=== PATIENT | male | born 1955 | race Caucasian/White ===

== ENCOUNTER 2021-12-15 21:16 | Inpatient (IN) | payer MEDICARE ==
[2021-12-15] MEDS ORDERED: SODIUM CHLORIDE 0.9% 1,000 ML IV ONE (21:39)
[2021-12-15] MEDS ORDERED: MIDAZOLAM 2 MG/2 ML VIAL IV ONE (21:40)
[2021-12-15] MEDS ORDERED: LIDOCAINE 1% INJ 10MG/ML (30 ML VIAL-PF) SQ ONE (21:41)
[2021-12-15] MEDS ORDERED: VERAPAMIL SYRINGE (5 MG/10 ML) INTRAARTER ONE ×2 (21:42→22:35)
[2021-12-15] MEDS ORDERED: FUROSEMIDE 10 MG/ML 4 ML VIAL ONE (21:47)
[2021-12-15] MEDS ORDERED: FUROSEMIDE 10 MG/ML 4 ML VIAL IV ONE (21:48)
[2021-12-15] MEDS: HEPARIN SODIUM 1,000 UN/ML (10ML VL) IV ONE ×2 (21:50→22:06)
--- NOTE | 2021-12-15 21:50 | P.CRDCN ---
History of Present Illness History of present illness: This is Dr. Dangelo dictating an H/P on this patient The patient was interviewed and examined IMPRESSION / ASSESSMENT: Acute ST elevation AL inferior posterior lateral and chest pain that began 1 hour before arriving to the Medical Center Recent GI Bleeding from a Bleeding Ulcer No Recent Acute Bleeding Post Discharge Marijuana Use PLAN: Urgent coronary angiography Patient received aspirin heparin and atorvastatin at [facility] HPI Patient started experiencing chest discomfort after an argument with his grandson became very emotionally upset He was describing throbbing discomfort in the center of the chest. He was pale and diaphoretic old and clammy No GI bleeding in the last 2-3 days He has a history of her bleeding ulcer diagnosed on endoscopy a week back His twelve-lead EKG showed ST elevation in inferior leads and ST depression in the precordial and high lateral leads I was called by the ER physician at [facility] stating that this patient had arrived within one hour chest discomfort and asked him to transfer him to put her on hospital urgently to the [facility] The Was Activated by Me and I Spoke with Dr. Russo. Was Covering for Dr. Jolley ROS: No fever chills or rigors, no cough, phlegm or expectoration, no nausea, vomiting or diarrhea, no hematuria, dysuria, no musculoskeletal complaints, no strokes or seizures, no skin lesions. EXAMINATION: Sinus tachycardia, blood pressure 06/16/1975. His mercury pulse is 108 beats a minute Patient was on the cath table REVIEW OF LABS, ECG & MEDICAL DATA EKG shows ST elevation in the inferior leads with ST depression in the precordial leads and in the high lateral leads
[2021-12-15] MEDS ORDERED: CLOPIDOGREL 75 MG TAB ONE (22:02)
[2021-12-15] MEDS ORDERED: CLOPIDOGREL 75 MG TAB PO ONE (22:04)
[2021-12-15] MEDS ORDERED: METOPROLOL TARTRATE 5 MG/5 ML VIAL IVP ONE (22:06)
[2021-12-15] MEDS: METOPROLOL TARTRATE 5 MG/5 ML VIAL IVP ONE ×2 (22:11→22:15)
[2021-12-15] MEDS ORDERED: IOPAMIDOL-370 100ML BTL INJ ONE ×2 (22:11→22:35)
[2021-12-15 23:15] LABS: Glucose,Whole Blood 225 mg/dL (70-110)
[2021-12-16] MEDS: LOSARTAN 25 MG TAB PO SCH ×2 (00:05→08:53)
[2021-12-16] MEDS: ATORVASTATIN 20 MG TAB PO SCH ×2 (00:05→20:29)
[2021-12-16] MEDS ORDERED: NALOXONE 0.4 MG/ML 1 ML VIAL IV PRN (00:34)
[2021-12-16 05:47] LABS: Partial Thromboplastin Time 22.8 sec (22.0-30.0); Prothrombin Time 10.6 sec (9.0-12.0)
[2021-12-16 05:48] LABS: Anisocytosis Slight; Basophils % (A) 0 %; Eosinophils % (A) 0 %; HCT 24.4 % (39.0-53.0); HGB 7.3 gm/dL (13.0-17.5); Hypochromasia Marked; Lymphocytes # (A) 1.5 k/uL (1.0-4.8); Lymphocytes % (A) 15 %; MCH 26.3 pg (25.0-35.0); MCHC 29.7 g/dL (31.0-37.0); MCV 88.4 fL (80.0-100.0); Mean Platelet Volume 10.6; Monocytes # (A) 0.4 k/uL (0-1.0); Monocytes % (A) 4 %; Neutrophils # (A) 7.9 k/uL (1.3-7.7); Neutrophils % (A) 77 %; Platelet Count 347 k/uL (150-450); Poikilocytosis Marked; RBC 2.77 m/uL (4.30-5.90); RDW 16.5 % (11.5-15.5); WBC 10.3 k/uL (3.8-10.6)
--- NOTE | 2021-12-16 05:54 | P.HPIM ---
History of Present Illness H&P Date: 12/16/21 Chief Complaint: chest pain 66-year-old with controlled hypertension, hyperlipidemia Patient was sent in to our hospital as a code STEMI after discussing with our corporate security officer production assistant he was taken straight to the phlebotomist medical lab assistant and stents were deployed in his RCA. Patient was seen at after his left heart cath he was doing well denies any ongoing chest pain, tolerated procedure well. Denies any nausea vomiting or trouble eating. He reports that he had some argument with his 17-year-old grandson he got very upset and started to feel throbbing chest pain he became pale diaphoretic and was taken for evaluation where he was found to have ST elevation in his inferior leads with ST depression in his lateral leads on his EKG. Patient denies any cardiac history in the past however he does report recent history of GI bleed in where he was having melena for couple weeks, he had an EGD done earlier this week and found to have peptic ulcer disease and tested positive for H. pylori he's been on amoxicillin and clarithromycin and PPI and high since denies any ongoing GI bleeding. Denies taking any NSAIDs denies any blood thinners denies any heavy alcohol consumption he denies tobacco smoking he does admit to marijuana patient doesn't have any history of diabetes stroke or cardiac disease Admits that he is generally under a lot of stress and worries about all little things and he's been going through some stressful time in his life Review of Systems Pertinent positives as noted in HPI. All other systems were reviewed and are negative Past Medical History Past Medical History: Hyperlipidemia, Hypertension History of Any Multi-Drug Resistant Organisms: None Reported Past Surgical History: Hernia Repair Additional Past Surgical History / Comment(s): Right ankle 2004, Right shoulder 2006, Hernia repair 1982 Past Anesthesia/Blood Transfusion Reactions: No Reported Reaction Past Psychological History: No Psychological Hx Reported Smoking Status: Former smoker Past Alcohol Use History: None Reported - Past Family History Family Family Medical History: Coronary Artery Disease (CAD), Hypertension Medications and Allergies Allergies Allergy/AdvReac Type Severity Reaction Status Date / Time codeine AdvReac Rapid Verified 12/15/21 22:42 Heart Rate Physical Exam Vitals: Vital Signs Temp Pulse Resp BP Pulse Ox 12/16/21 02:00 92 12 122/75 99 12/16/21 01:30 115 H 41 H 107/69 99 12/16/21 01:00 93 14 101/75 99 12/16/21 00:32 99 17 101/75 99 12/16/21 00:30 98 12 108/58 99 12/16/21 00:00 98.4 F 95 13 103/74 99 12/15/21 23:30 98 11 L 101/72 99 12/15/21 23:10 98 14 86 L Intake and Output 12/15/21 12/15/21 12/16/21 14:59 22:59 06:59 Intake Total 400 300 Output Total 700 1050 Balance -300 -750 Intake: IV 400 300 Sodium Chloride 0.9% 1, 300 000 ml @ 75 mls/hr IV . [id number] [facility] Rx#:[id number] Output: Urine 700 1050 Other: Voiding Method Urinal # Voids 1 Weight 70.4 kg 70.4 kg Constitutional: No acute distress, conversant, pleasant Eyes: Anicteric sclerae, moist conjunctiva, Pupils equal round reactive to light ENMT: NC/AT Oropharynx clear, no erythema, or exudates Neck: Supple, FROM, no masses, or JVD No carotid bruits No thyromegaly Lungs: Clear to auscultation Clear to percussion Normal respiratory effort, no accessory muscle use Cardiovascular: Heart regular in rate and rhythm, No murmurs, gallops, or rubs No peripheral edema Abdominal: Soft Nontender, no guarding, rebound or rigidity Abdomen moving with respiration Normoactive bowel sounds No hepatomegaly, No splenomegaly No palpable mass No abdominal wall hernia noted Skin: Normal temperature, tone, texture, turgor No induration No subcutaneous nodules No rash, lesions No ulcers Extremities: Left heart cath access through a right wrist looks intact no bleeding no excessive bruising No digital cyanosis No clubbing Pedal pulses intact and symmetrical Radial pulses intact over the left wrist, unable to assess the right wrist at this time due to surgical access No calf tenderness Psychiatric: Alert and oriented to person, place and time Appropriate affect fair judgement Neuro Muscles Strength 5/5 in all 4 extremities Sensation to light touch grossly present throughout Cranial nerves II-XII grossly intact No focal sensory deficits Lymphatics: no palpable cervical or supraclavicular , or inguinal lymph nodes Results Labs: Abnormal Lab Results - Last 24 Hours (Table) 12/15/21 Range/Units 23:13 POC Glucose (mg/dL) 225 H (70-110) mg/dL Thrombosis Risk Factor Assmnt - Choose All That Apply Any of the Below Risk Factors Present?: Yes Each Factor Represents 1 point: Acute [place] Other Risk Factors: Yes Each Risk Factor Represents 2 Points: Age 61-74 years, Patient confined to bed Other congenital or acquired thrombophilia - If yes, enter type in comment: No Thrombosis Risk Factor Assessment Total Risk Factor Score: 5 Thrombosis Risk Factor Assessment Level: High Risk Assessment and Plan Assessment: STEMI , status post stenting of RCA drug-eluting stents Cardiology initiated Plavix and aspirin Continue monitoring in the ICU Continue with statin and metoprolol and losartan Cardiac monitoring Follow-up other cardiology recommendations Recent upper GI bleeding secondary to peptic ulcer disease with H. pylori positive Continue with PPI hold antibiotics for now patient is on amoxicillin and Claritin from my sent, as clarithromycin decreases effectiveness of plan expect 30% will discuss further with cardiology on when it would be possible to resume antibiotics Monitor hemoglobin Monitor for any evidence of GI bleeding 66-year-old male admitted with a STEMI, status post RCA stenting currently being monitored in the ICU post left heart cath anticipated length of stay more than 2 midnights Full code DVT prophylaxis heparin subcu 3 times a day
[2021-12-16 05:56] LABS: ALT 204 U/L (4-49); AST 191 U/L (17-59); African American GFR (CKD) >90 (>60 ml/min/1.73 sqM); Albumin 3.5 g/dL (3.5-5.0); Alkaline Phosphatase 102 U/L (38-126); Anion Gap 8 mmol/L; Blood Urea Nitrogen 16 mg/dL (9-20); Calcium 8.5 mg/dL (8.4-10.2); Carbon Dioxide 27 mmol/L (22-30); Chloride 104 mmol/L (98-107); Glucose 113 mg/dL (74-99); Magnesium 2.1 mg/dL (1.6-2.3); Non-African American GFR(CKD) >90 (>60 ml/min/1.73 sqM); Potassium 4.8 mmol/L (3.5-5.1); Sodium 139 mmol/L (137-145); Total Bilirubin 0.4 mg/dL (0.2-1.3); Total Protein 6.1 g/dL (6.3-8.2)
[2021-12-16] MEDS: SODIUM CHLORIDE 0.9% 1,000 ML IV SCH ×3 (06:58→15:46)
[2021-12-16] MEDS: PANTOPRAZOLE 40 MG TABLET PO SCH (07:09)
--- NOTE | 2021-12-16 07:09 | CC ---
CARDIAC CATHETERIZATION REPORT DATE OF SERVICE: 12/15/2021. PROCEDURE: 1. Left heart catheterization, coronary angiography. 2. PTCA and stenting of proximal and mid RCA with a drug-eluting stent. ANESTHESIA: Moderate conscious sedation time was 56 minutes. Patient was administered Versed. Oxygen saturation,hemodynamics and EKG were monitored closely. The patient was advised dual antiplatelet therapy with aspirin and Plavix without interruption for 12 months. CLINICAL INFORMATION: Mr. Snow is a 66-year-old gentleman with a history of hypertension and also anemia of unclear etiology for which he is having a workup. Last Sunday, he had an endoscopy performed, results of which are not available, at [facility]. He came into the hospital with chest discomfort more than 1 hour prior to arrival to [facility], was transferred here to [facility] after initiation of aspirin and heparin. Patient was seen by Dr. Dangelo and I proceeded to perform cardiac cath expeditiously. PROCEDURE NOTE: Under local anesthesia and strict aseptic precautions, a 6-Korean introducer was placed in the right radial artery. I started off with a right Sinan guide catheter and performed PTCA and stenting of proximal and mid RCA with 2 drug-eluting stents and then performed coronary angiography with a JL3.5 catheter. The same right guide catheter was used to check pressures in the LV, but LV gram was not performed. The sheath was taken out and TR band applied as per protocol. The saturation the fingers of the right hand of 94%. Patient tolerated the procedure well without complication. He received heparin intravenously. A CT was 213. Because of a hemoglobin of 6.9, we kept the ACT low end of the range. I also gave 600 mg of Plavix. CARDIAC CATHETERIZATION FINDINGS: RIGHT CORONARY ARTERY: Large dominant vessel, superdominant 99% mid occlusion at the origin of acute marginal branches and then there is another lesion of about 70% beyond that and then distally bifurcates into PDA, PLV which are both large and supplies a sizable amount of myocardium. LEFT POSTERIOR CIRCUMFLEX CORONARY ARTERY: This vessel comes ectopically from the RCA. The RCA injection reveals that the circumflex goes superiorly and posteriorly and is not very well seen. It appears to be a diffusely disease vessel which is a nondominant coming from the right coronary artery. LEFT ANTERIOR DESCENDING CORONARY ARTERY: This is a good caliber vessel that has a proximal lesion of about 60% located very close to the ostium. Then the caliber improves and it gives off a septal and diagonal branch and then runs all the way towards the apex and gives off another second diagonal branch. There is mild diffuse disease of about 30-40 percent but proximally there is a 60% lesion, which I believe is significant, but not critical. This involves a single LAD that comes from the left coronary cuff. This patient has ectopic circumflex coming from the RCA, small and nondominant. Left ventricle end-diastolic pressure was 24 mmHg without any gradient across aortic valve. FINAL IMPRESSION: Left ventricular end-diastolic pressure was about 24 mmHg without any gradient across aortic valve. This patient has an ectopic circumflex coming from the right coronary cusp. There is no left main coronary artery. RCA has a 99% mid lesion and a 70% distal/mid lesion super dominant vessel. Circumflex comes off very proximally, but appears to be diffusely disease nondominant vessel without significant amount of myocardium being supplied by it. LAD is a good caliber vessel, has a 60% stenosis proximally and then mild diffuse disease of 20-40 percent and runs towards the apex, gives off 2 good-sized diagonal branch and a good-sized septal branch. LV-gram was not performed. RECOMMENDATIONS: I advised PCI of RCA and performed this expeditiously. PCI PROCEDURE DETAILS: Standard right Sinan guide catheter was used to cannulate the right coronary artery. A run-through wire was used to cross the lesion. The mid lesion was initially dilated with a trek balloon of 2.5 caliber. Then a 3.0 caliber NC trek was used to pre dilated. I deployed an 18 mm long 3.5 caliber Xience stent and noted that distally there was another 70% lesion. This was addressed with a 15 mm long 3.5 caliber Xience stent. Excellent angiographic result was achieved without complication. Patient received 600 mg of Plavix and also heparin ACT was kept at 213. Patient's hemoglobin was 6.9, platelet count was normal. He had a recent workup and had endoscopy performed and was known to have a GI bleed. Therefore, ACT was kept in the low end of the range. Results were discussed with the patient and family and he was sent to the room in a stable condition. Advised 12 months of aspirin and Plavix without interruption unless we find a reason in view of his anemia. MMODL / IJN: [id number] /
[2021-12-16] MEDS: HEPARIN SODIUM,PORCINE/PF 5,000 UNIT/0.5 ML SYRINGE SQ SCH ×3 (08:52→23:05)
[2021-12-16] MEDS: METOPROLOL TARTRATE 25 MG TAB PO SCH ×2 (08:53→20:29)
[2021-12-16] MEDS: CLOPIDOGREL 75 MG TAB PO SCH (08:53)
[2021-12-16] MEDS: ASPIRIN 81 MG PO SCH (08:53)
[2021-12-16] MEDS ORDERED: CLARITHROMYCIN 500 MG TAB PO SCH ×2 (09:00)
[2021-12-16] MEDS ORDERED: AMOXICILLIN 500 MG CAP PO SCH ×2 (09:00)
--- NOTE | 2021-12-16 09:16 | P.PN ---
Subjective Progress Note Date: 12/16/21 Patient has a known history of hypertension and anemia. He Presented to the ER with chest pain and was found to be an acute ST elevated NJ, his EKG showed ST elevation in the inferior leads and ST depression in the precordial and high lateral leads. He underwent a heart catheterization and received PCI to the proximal and mid RCA. Patient denies GI bleeding in the last 2-3 days. He has a recent history of a bleeding ulcer diagnosed on endoscope last week. He is being treated for H. pylori. Per patient post endoscopy his hemoglobin was 7.1. He had a recheck earlier this week and hemoglobin was 7.4. Patient has been started on aspirin and Lipitor Plavix and Lopressor. His liver enzymes are e levated AST is 191 ALT is 204, BUNs is 16 creatinine 0.83. He was seen resting comfortably in bed. He denies chest pain or increased shortness of breath. Right radial puncture site is soft with no ecchymosis or hematoma. Elevated liver enzymes possibly secondary to STEMI, will continue to follow. Continue with atorvastatin. Blood pressures are well controlled 106/69 heart rate 93. He continues to have no episodes of bleeding. Patient is encouraged to increase activity as tolerated. EKG this morning shows sinus rhythm without ST elevation. Will check troponin, expected to be elevated post NJ/cardiac catheterization. Will obtain an echocardiogram. Objective - Vital Signs Vital signs: Vital Signs Temp 98.2 F 12/16/21 04:00 Pulse 95 12/16/21 07:00 Resp 10 L 12/16/21 07:00 BP 110/71 12/16/21 07:00 Pulse Ox 97 12/16/21 07:00 FiO2 Intake & Output 12/15/21 12/16/21 12/16/21 18:59 06:59 18:59 Intake Total 945 20 Output Total 2300 0 Balance -1355 20 Weight 74 kg Intake: IV 945 20 Sodium Chloride 0.9% 1, 20 20 000 ml @ 20 mls/hr IV . Q24H [id number] Rx#:[id number] Sodium Chloride 0.9% 1, 525 000 ml @ 75 mls/hr IV . [id number] Rx#:[id number] Output: Urine 2300 0 Other: Voiding Method Urinal # Voids 0 0 - Exam PHYSICAL EXAM: VITAL SIGNS: Reviewed. GENERAL: Well-developed in no acute distress. HEENT: Head is normocephalic. Pupils are equal, round. Sclerae anicteric. Mucous membranes of the mouth are moist. NECK: Supple. No JVD or thyromegaly RESPIRATORY: Respirations even and unlabored. Lungs diminished to auscultation bilaterally. CARDIO: Regular rate and rhythm. S1 and S2 heard. No murmur or gallops. EXTREMITIES: Normal range of motion. No clubbing or cyanosis. Peripheral pulses intact. Negative for bilateral lower extremity edema. Right radial puncture sites soft, nontender, no hematoma, no ecchymosis NEURO: Orientated to person, time, mood is appropriate - Labs CBC & Chem 7: 12/16/21 05:11 12/16/21 05:20 Labs: Abnormal Lab Results - Last 24 Hours (Table) 12/15/21 12/16/21 12/16/21 Range/Units 23:13 05:11 05:20 RBC 2.77 L (4.30-5.90) m/uL Hgb 7.3 L (13.0-17.5) gm/dL Hct 24.4 L (39.0-53.0) % MCHC 29.7 L (31.0-37.0) g/dL RDW 16.5 H (11.5-15.5) % Neutrophils # 7.9 H (1.3-7.7) k/uL Glucose 113 H (74-99) mg/dL POC Glucose (mg/dL) 225 H (70-110) mg/dL AST 191 H (17-59) U/L ALT 204 H (4-49) U/L Total Protein 6.1 L (6.3-8.2) g/dL Assessment and Plan Assessment: Acute inferior ST elevated [place] Elevated liver enzymes possibly secondary to acute coronary syndrome Recent GI bleed secondary to bleeding ulcer and H. pylori no recent acute bleeding post endoscopy Hypertension Anemia Plan: Ordered troponin Reviewed EKG Obtain an echocardiogram Continue with aspirin and Lipitor Plavix and Lopressor Continue to monitor hemoglobin Continue to trend liver enzymes Continue with all other current cardiac medications Continue telemetry monitoring Continue with accurate I's and O's and daily weights Further recommendations based on clinical course The above impression and plan of care have been discussed and directed by the signing physician. Elina Cao, nurse practitioner, acting as scribe for signin g physician.
--- NOTE | 2021-12-16 10:58 | CA ---
Transthoracic Echo Report Name: Sam Snow Age: 66 Gender: M : 1955 Exam Date: 12/16/2021 08:03 Exam Location: [place] [facility] Ht (in): 66 Wt (lb): 163 Ordering Physician: Kathryn Russo MD ([id number]) Attending/Referring Phys: Tax Commissioner Brittaney Garcia RDCS Procedure CPT: Indications: Evaluation of ventricular function Cardiac Hx: Technical Quality: Fair Contrast 1: Total Dose (mL): Contrast 2: Total Dose (mL): MEASUREMENTS (Male / Female) Normal Values 2D ECHO LV Diastolic Diameter PLAX 4.9 cm 4.2 - 5.9 / 3.9 - 5.3 cm LV Systolic Diameter PLAX 4.1 cm IVS Diastolic Thickness 1.0 cm 0.6 - 1.0 / 0.6 - 0.9 cm LVPW Diastolic Thickness 1.2 cm 0.6 - 1.0 / 0.6 - 0.9 cm LV Relative Wall Thickness 0.5 RV Internal Dim ED PLAX 3.6 cm LA Volume 70.4 cm??? 18 - 58 / 22 - 52 cm??? M-MODE Aortic Root Diameter MM 2.9 cm LA Systolic Diameter MM 2.9 cm LA Ao Ratio MM 1.0 AV Cusp Separation MM 1.6 cm DOPPLER AV Peak Velocity 167.6 cm/s AV Peak Gradient 11.2 mmHg LVOT Peak Velocity 91.8 cm/s LVOT Peak Gradient 3.4 mmHg MV Area PHT 5.9 cm??? Mitral E Point Velocity 88.0 cm/s Mitral A Point Velocity 82.2 cm/s Mitral E to A Ratio 1.1 MV Deceleration Time 129.5 ms MV E' Velocity 7.3 cm/s Mitral E to MV E' Ratio 12.0 TR Peak Velocity 273.0 cm/s TR Peak Gradient 29.8 mmHg Right Ventricular Systolic Press 34.8 mmHg FINDINGS Left Ventricle Left ventricular cavity size normal. Left ventricular wall thickness normal. Hypokinetic inferior wall. Basal septal wall is hypokinetic and basal lateral wall hypokinetic. Left ventricular ejection fraction is estimated at 45%. Right Ventricle Right ventricle at upper limits of normal. Right ventricular systolic pressure within normal limits. Right Atrium Normal right atrial size. Left Atrium Moderately increased left atrial volume. Mildly increased left atrial area. Mitral Valve Structurally normal mitral valve. [id number] mitral regurgitation. Aortic Valve No aortic valve stenosis or regurgitation. Tricuspid Valve Structurally normal tricuspid valve. Mild tricuspid regurgitation. Pulmonic Valve Trace pulmonic regurgitation. Pericardium No pericardial effusion. Aorta Normal size aortic root and proximal ascending aorta. CONCLUSIONS LV size is normal there is hypokinesia of the inferobasal and inferolateral wall with estimated ejection fraction of nearly 45%. Left atrium is enlarged. There is mild to moderate mitral regurgitation with mild mitral annular calcification. There is no significant pulmonary hypertension. No pericardial effusion Previewed by: Dr. Kathryn Russo MD (Electronically Signed) Final Date: 16 December 2021 10:57
--- NOTE | 2021-12-16 13:41 | P.PN ---
Progress Note - Text Progress Note Date: 12/16/21 Hospitalist Interval Note Patient seen and examined at bedside. Doing well no chest pain at this time. No nausea. no vomiting. Denies any recent blood in stools, none since scope last Sunday. Vital signs reviewed General: non toxic, no distress, appears at stated age Derm: warm, dry Head: atraumatic, normocephalic, symmetric Eyes: EOMI, no lid lag, anicteric sclera Mouth: no lip lesion, mucus membranes moist Cardiovascular: S1S2 reg, no murmur, positive posterior tibial pulse bilateral, Lungs: CTA bilateral, no rhonchi, no rales , no accessory muscle use Abdominal: soft, nontender to palpation, no guarding, no appreciable organomegaly Ext: no gross muscle atrophy, no edema, no contractures Neuro: CN II-XI grossly intact, no focal neuro deficits Psych: Alert, oriented, appropriate affect Assessment/Plan: STEMI - ASA, Plavix, Statin, BB - cardio recs - await echo Recent GI bleed due to peptic ulcer disease with H. Pylori - d/w Dr. Mukul salas. Will put tripple therapy on hold X 6 months and then restart. Continue wtih PPI but discharge on protonix. This is an update note for patient , for full note on 12/16/21 see H and P. There is no charge associated with this note.
[2021-12-17] MEDS: SODIUM CHLORIDE 0.9% 1,000 ML IV SCH ×2 (06:11→08:32)
[2021-12-17] MEDS: PANTOPRAZOLE 40 MG TABLET PO SCH ×2 (06:50→17:17)
[2021-12-17] MEDS: ASPIRIN 81 MG PO SCH (09:07)
[2021-12-17] MEDS: HEPARIN SODIUM,PORCINE/PF 5,000 UNIT/0.5 ML SYRINGE SQ SCH ×2 (09:07→17:17)
[2021-12-17] MEDS: METOPROLOL TARTRATE 25 MG TAB PO SCH ×2 (09:07→20:37)
[2021-12-17] MEDS: CLOPIDOGREL 75 MG TAB PO SCH (09:07)
[2021-12-17] MEDS: LOSARTAN 25 MG TAB PO SCH (09:07)
--- NOTE | 2021-12-17 10:33 | P.PN ---
Subjective HISTORY OF PRESENTING ILLNESS Patient has a known history of hypertension and anemia. He Presented to the ER with chest pain and was found to be an acute ST elevated GA, his EKG showed ST elevation in the inferior leads and ST depression in the precordial and high lateral leads. He underwent a heart catheterization and received PCI to the proximal and mid RCA. Patient denies GI bleeding in the last 2-3 days. He has a recent history of a bleeding ulcer diagnosed on endoscope last week. He is being treated for H. pylori. Per patient post endoscopy his hemoglobin was 7.1. He had a recheck earlier this week and hemoglobin was 7.4. Patient has been started on aspirin and Lipitor Plavix and Lopressor. His liver enzymes are elevated AST is 191 ALT is 204, BUNs is 16 creatinine 0.83. He was seen resting comfortably in bed. He denies chest pain or increased shortness of breath. Right radial puncture site is soft with no ecchymosis or hematoma. Elevated liver enzymes possibly secondary to STEMI, will continue to follow. Continue with atorvastatin. Blood pressures are well controlled 106/69 heart rate 93. He continues to have no episodes of bleeding. Patient is encouraged to increase activity as tolerated. EKG this morning shows sinus rhythm without ST elevation. Will check troponin, expected to be elevated post GA/cardiac catheterization. Will obtain an echocardiogram. 12/17 seen and examined. Patient denies any chest pain or pressure. Denies any shortness breath. Echo shows inferior hypokinesis with ejection fraction 45%. Denies any hematochezia or melena. No further blood work has been performed tod ay and we will check repeat. Also check iron studies. Blood pressure somewhat borderline however denies any lightheadedness. PHYSICAL EXAMINATION Vital signs reviewed. CONSTITUTIONAL: No apparent distress. HEENT: Head is normocephalic. Pupils are equal, round. Sclerae anicteric. Mucous membranes of the mouth are moist. No JVD. No carotid bruit. CHEST EXAMINATION: Lungs are clear to auscultation. No chest wall tenderness is noted on palpation or with deep breathing. HEART EXAMINATION: Regular rate and rhythm. S1, S2 heard. No murmurs, gallops or rub. ABDOMEN: Soft, nontender. Positive bowel sounds. EXTREMITIES: 2+ peripheral pulses, no lower extremity edema and no calf tenderness. NEUROLOGIC EXAMINATION: Patient is awake, alert and oriented x3. Assessment: Acute inferior ST elevated GA Elevated liver enzymes Recent GI bleed secondary to bleeding ulcer and H. pylori no recent acute bleeding post endoscopy Hypertension Anemia Mild cardiomyopathy EF 45% Plan: Echocardiogram reviewed with ejection fraction 45%. Continue with heart failure regimen as able with losartan and metoprolol. Continue dual antiplatelets. Check repeat blood work. Check iron studies. If patient is iron deficient we will perform iron transfusion as he is high risk for repeat bleeding given rec ent GI bleed and need for dual antiplatelets. Increase protonix to twice a day. Okay to downgrade to 3 S. Objective - Vital Signs Vital signs: Vital Signs Temp 98.3 F 12/17/21 04:00 Pulse 95 12/17/21 06:00 Resp 20 12/17/21 06:00 BP 103/65 12/17/21 06:00 Pulse Ox 95 12/17/21 06:00 FiO2 Intake & Output 12/16/21 12/17/21 12/17/21 18:59 06:59 18:59 Intake Total 60 220 Output Total 750 625 Balance -690 -405 Weight 74 kg Intake: IV 60 220 Sodium Chloride 0.9% 1, 60 220 000 ml @ 20 mls/hr IV . Q24H [id number] Rx#:[id number] Output: Urine 750 625 Other: Voiding Method Toilet Toilet Urinal Urinal # Voids 1 0 # Bowel Movements 1 - Labs CBC & Chem 7: 12/16/21 05:11 12/16/21 05:20 Labs: Abnormal Lab Results - Last 24 Hours (Table) 12/16/21 Range/Units 09:16 Troponin I 23.400 H* (0.000-0.034) ng/mL
[2021-12-17 11:10] LABS: Anisocytosis Slight; Basophils % (A) 0 %; Eosinophils # (A) 0.1 k/uL (0-0.7); Eosinophils % (A) 1 %; HGB 7.3 gm/dL (13.0-17.5); Hypochromasia Marked; Lymphocytes # (A) 1.2 k/uL (1.0-4.8); Lymphocytes % (A) 14 %; MCH 25.3 pg (25.0-35.0); MCHC 29.2 g/dL (31.0-37.0); MCV 86.6 fL (80.0-100.0); Mean Platelet Volume 10.2; Monocytes # (A) 0.5 k/uL (0-1.0); Monocytes % (A) 5 %; Neutrophils # (A) 6.6 k/uL (1.3-7.7); Neutrophils % (A) 76 %; Platelet Count 378 k/uL (150-450); Poikilocytosis Marked; RBC 2.89 m/uL (4.30-5.90); RDW 16.8 % (11.5-15.5); WBC 8.7 k/uL (3.8-10.6)
[2021-12-17 11:35] LABS: African American GFR (CKD) >90 (>60 ml/min/1.73 sqM); Albumin 3.5 g/dL (3.5-5.0); Anion Gap 5 mmol/L; Blood Urea Nitrogen 15 mg/dL (9-20); Calcium 8.4 mg/dL (8.4-10.2); Carbon Dioxide 27 mmol/L (22-30); Chloride 104 mmol/L (98-107); Glucose 114 mg/dL (74-99); Non-African American GFR(CKD) 81 (>60 ml/min/1.73 sqM); Phosphorus 3.5 mg/dL (2.5-4.5); Potassium 4.2 mmol/L (3.5-5.1); Sodium 136 mmol/L (137-145)
--- NOTE | 2021-12-17 13:58 | P.PN ---
Subjective Progress Note Date: 12/17/21 Patient has no new complaints today. He is doing quite well. Plan is to step down to 3 S. today. Likely discharge tomorrow. Gen: awake, alert HEENT: normocephalic, atraumatic, good hearing acuity, moist mucous membranes Resp: good air exchange, breathing comfortably with no accessory muscle use CVS: good distal perfusion x 4, GI: soft, NTTP, ND : no SPT, no CVAT, santiago catheter not present MSK: no pitting edema, no clubbing Neuro: non-focal, moving all extremities Psych: cooperative, euthymic mood Assessment/plan: STEMI, status post stenting of RCA drug-eluting stents - ASA, Plavix, Statin, BB - cardio recs - await echo Recent GI bleed due to peptic ulcer disease with H. Pylori - d/w Dr. Mukul salas. Will put tripple therapy on hold X 6 months and then restart. Continue wtih PPI but discharge on protonix. Full code DVT prophylaxis heparin subcu 3 times a day Objective - Vital Signs Vital signs: Vital Signs Temp 98.2 F 12/17/21 12:00 Pulse 89 12/17/21 13:00 Resp 18 12/17/21 13:00 BP 118/76 12/17/21 13:00 Pulse Ox 98 12/17/21 13:00 FiO2 Intake & Output 12/16/21 12/17/21 12/17/21 18:59 06:59 18:59 Intake Total 60 220 591 Output Total 750 625 Balance -690 -405 591 Weight 74 kg Intake: IV 60 220 Sodium Chloride 0.9% 1, 60 220 000 ml @ 20 mls/hr IV . Q24H [facility] Rx#:[id number] Oral 591 Output: Urine 750 625 Other: Voiding Method Toilet Toilet Urinal Urinal # Voids 1 0 1 # Bowel Movements 1 - Labs CBC & Chem 7: 12/17/21 11:00 12/17/21 11:00 Labs: Abnormal Lab Results - Last 24 Hours (Table) 12/17/21 12/17/21 Range/Units 11:00 11:00 RBC 2.89 L (4.30-5.90) m/uL Hgb 7.3 L (13.0-17.5) gm/dL Hct 25.0 L (39.0-53.0) % MCHC 29.2 L (31.0-37.0) g/dL RDW 16.8 H (11.5-15.5) % Sodium 136 L (137-145) mmol/L Glucose 114 H (74-99) mg/dL
[2021-12-17 18:30] LABS: % Iron Saturation 2.54 (15.00-50.00); Ferritin 35.8 ng/mL (22.0-322.0)
[2021-12-17] MEDS: ATORVASTATIN 20 MG TAB PO SCH (20:37)
[2021-12-18] MEDS: HEPARIN SODIUM,PORCINE/PF 5,000 UNIT/0.5 ML SYRINGE SQ SCH ×2 (00:38→09:53)
[2021-12-18] MEDS: SODIUM CHLORIDE 0.9% 1,000 ML IV SCH (06:02)
[2021-12-18] MEDS: PANTOPRAZOLE 40 MG TABLET PO SCH (06:42)
[2021-12-18 07:44] LABS: Anisocytosis Slight; HCT 24.7 % (39.0-53.0); HGB 7.3 gm/dL (13.0-17.5); Hypochromasia Marked; MCHC 29.5 g/dL (31.0-37.0); MCV 88.2 fL (80.0-100.0); Mean Platelet Volume 8.6; Platelet Count 388 k/uL (150-450); Poikilocytosis Marked; RDW 16.7 % (11.5-15.5); WBC 8.7 k/uL (3.8-10.6)
[2021-12-18] MEDS: LOSARTAN 25 MG TAB PO SCH (09:54)
[2021-12-18] MEDS: METOPROLOL TARTRATE 25 MG TAB PO SCH (09:54)
[2021-12-18] MEDS: CLOPIDOGREL 75 MG TAB PO SCH (09:54)
[2021-12-18] MEDS: ASPIRIN 81 MG PO SCH (09:54)
[2021-12-18 10:45] VITALS: RESP 17
[2021-12-18 15:03] VITALS: BP 107/62; PULSE 90; TEMP 97.7
--- NOTE | 2021-12-18 15:12 | P.PN ---
Subjective HISTORY OF PRESENTING ILLNESS Patient has a known history of hypertension and anemia. He Presented to the ER with chest pain and was found to be an acute ST elevated [place], his EKG showed ST elevation in the inferior leads and ST depression in the precordial and high lateral leads. He underwent a heart catheterization and received PCI to the proximal and mid RCA. Patient denies GI bleeding in the last 2-3 days. He has a recent history of a bleeding ulcer diagnosed on endoscope last week. He is being treated for H. pylori. Per patient post endoscopy his hemoglobin was 7.1. He had a recheck earlier this week and hemoglobin was 7.4. Patient has been started on aspirin and Lipitor Plavix and Lopressor. His liver enzymes are elevated AST is 191 ALT is 204, BUNs is 16 creatinine 0.83. He was seen resting comfortably in bed. He denies chest pain or increased shortness of breath. Right radial puncture site is soft with no ecchymosis or hematoma. Elevated liver enzymes possibly secondary to STEMI, will continue to follow. Continue with atorvastatin. Blood pressures are well controlled 106/69 heart rate 93. He continues to have no episodes of bleeding. Patient is encouraged to increase activity as tolerated. EKG this morning shows sinus rhythm without ST elevation. Will check troponin, expected to be elevated post ME/cardiac catheterization. Will obtain an echocardiogram. 12/17 seen and examined. Patient denies any chest pain or pressure. Denies any shortness breath. Echo shows inferior hypokinesis with ejection fraction 45%. Denies any hematochezia or melena. No further blood work has been performed tod ay and we will check repeat. Also check iron studies. Blood pressure somewhat borderline however denies any lightheadedness. 12/18 Patient seen and examined. Patient denies any chest pain or pressure. Denies any hematochezia or melena. Has been tolerating diet. Able walk the halls without difficulty. Hemoglobin stable at 7.3 with additional ferritin low at 35 with iron level 12. He has not been on any iron tablets in the past. PHYSICAL EXAMINATION Vital signs reviewed. CONSTITUTIONAL: No apparent distress. HEENT: Head is normocephalic. Pupils are equal, round. Sclerae anicteric. Mucous membranes of the mouth are moist. No JVD. No carotid bruit. CHEST EXAMINATION: Lungs are clear to auscultation. No chest wall tenderness is noted on palpation or with deep breathing. HEART EXAMINATION: Regular rate and rhythm. S1, S2 heard. No murmurs, gallops or rub. ABDOMEN: Soft, nontender. Positive bowel sounds. EXTREMITIES: 2+ peripheral pulses, no lower extremity edema and no calf tende rness. NEUROLOGIC EXAMINATION: Patient is awake, alert and oriented x3. Assessment: Acute inferior ST elevated ME Elevated liver enzymes Recent GI bleed secondary to bleeding ulcer and H. pylori no recent acute bleeding post endoscopy Hypertension Anemia Mild cardiomyopathy EF 45% Plan: Patient has been doing well and we will continue current regimen. Continue to antiplatelets and monitor closely for bleed with recent GI bleeding. Internal medicine have discussed with GI and had stopped triple therapy. Continue with omeprazole twice a day. Add iron tablets going home. Patient may be discharged home from a cardiology standpoint and follow-up in office in 1 week. Objective - Vital Signs Vital signs: Vital Signs Temp 97.7 F 12/18/21 12:00 Pulse 90 12/18/21 12:00 Resp 17 12/18/21 12:00 BP 107/62 12/18/21 12:00 Pulse Ox 100 12/18/21 12:00 FiO2 Intake & Output 12/17/21 12/18/21 12/18/21 18:59 06:59 18:59 Intake Total 591 420 Balance 591 420 Intake: Oral 591 420 Other: Voiding Method Toilet Toilet Toilet Urinal Urinal # Voids 1 1 - Labs CBC & Chem 7: 12/18/21 07:16 12/17/21 11:00 Labs: Abnormal Lab Results - Last 24 Hours (Table) 12/16/21 12/18/21 Range/Units 05:20 07:16 RBC 2.80 L (4.30-5.90) m/uL Hgb 7.3 L (13.0-17.5) gm/dL Hct 24.7 L (39.0-53.0) % MCHC 29.5 L (31.0-37.0) g/dL RDW 16.7 H (11.5-15.5) % Iron 12 L (65-175) ug/dL TIBC 476 H (228-460) ug/dL % Saturation 2.54 L (15.00-50.00)
--- NOTE | 2021-12-18 15:59 | P.DS ---
Providers Date of admission: 12/15/21 22:45 Expected date of discharge: 12/18/21 Attending physician: Aren Zheng MD Consults: 12/16/21 03:40 Consult Physician Routine Consulting Provider: Kathryn Russo Consult Reason/Comments: STEMI Do you want consulting provider notified?: Already Contacted 12/16/21 06:35 Consult Physician Routine Consulting Provider: Jannette Thompson Consult Reason/Comments: Anemia/Previous GIB Do you want consulting provider notified?: Yes, Notify in am Primary care physician: Aren Zheng MD Hospital Course: STEMI, status post stenting of RCA drug-eluting stents Recent GI bleed due to peptic ulcer disease with H. 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 He was found to have ST elevation in his inferior leads with ST depression in his lateral leads on his EKG. he did well following his catheterization. Notably, his triple therapy was discontinued for H. pylori for 6 months with the plan to restart after that. In the meantime, his PPI was increased to twice daily. He remains on aspirin, Plavix. Cardiology recommended patient also start iron tablet given hemoglobin of 7.3. Patient was discharged home with cardiology and PCP follow-up, will also follow-up with GI physician. Gen: awake, alert HEENT: normocephalic, atraumatic, good hearing acuity, moist mucous membranes Resp: good air exchange, breathing comfortably with no accessory muscle use CVS: good distal perfusion x 4, GI: soft, NTTP, ND : no SPT, no CVAT, santiago catheter not present MSK: no pitting edema, no clubbing Neuro: non-focal, moving all extremities Psych: cooperative, euthymic mood Patient Condition at Discharge: Good Plan - Discharge Summary Discharge Rx Participant: No New Discharge Prescriptions: New Losartan [Cozaar] 25 mg PO DAILY #30 tab Atorvastatin [Lipitor] 20 mg PO HS #30 tab Clopidogrel [Plavix] 75 mg PO DAILY #30 tab Ferrous Sulfate [Feosol] 325 mg PO DAILY #30 tab Continue Aspirin EC [Ecotrin Low Dose] 81 mg PO DAILY@1200 Omeprazole 20 mg PO BID Metoprolol Tartrate [Lopressor] 25 mg PO BID #60 tab Discontinued Clarithromycin [Biaxin] 500 mg PO Q12HR Amoxicillin 1,000 mg PO Q12H Discharge Medication List Aspirin EC [Ecotrin Low Dose] 81 mg PO DAILY@1200 12/16/21 [History] Omeprazole 20 mg PO BID 12/16/21 [History] Atorvastatin [Lipitor] 20 mg PO HS #30 tab 12/18/21 [Rx] Clopidogrel [Plavix] 75 mg PO DAILY #30 tab 12/18/21 [Rx] Ferrous Sulfate [Feosol] 325 mg PO DAILY #30 tab 12/18/21 [Rx] Losartan [Cozaar] 25 mg PO DAILY #30 tab 12/18/21 [Rx] Metoprolol Tartrate [Lopressor] 25 mg PO BID #60 tab 12/18/21 [Rx] Follow up Appointment(s)/Referral(s): Kathryn Russo MD [STAFF PHYSICIAN] - 1 Week Chapis Alas MD [STAFF PHYSICIAN] - 1 Week Patient Instructions/Handouts: Heart Attack (DC), Heart Healthy Diet (DC), After Radial Heart Catheterization (GEN) Activity/Diet/Wound Care/Special Instructions: do not submerge wrist in water avoid bending and flexing the wrist do not lift anything more than 10 pounds for 1 week Discharge Disposition: HOME SELF-CARE
[2021-12-18] MEDS ORDERED: FERROUS SULFATE 325 MG TAB PO SCH (17:30)
== END 2021-12-18 15:45 | disposition home or self-care (01) | DRG 247 ==
LOC: 2SICU 22:45 → 3SCARD 12-17 17:47
PROVIDERS: ADMIT Internal Medicine; ATTEND Internal Medicine
PROC: 4A023N7 Measurement of Cardiac Sampling and Pressure, Left Heart, Percutaneous Approach (ICD-10-PCS; 2021-12-15)
PROC: 027035Z Dilation of Coronary Artery, One Artery with Two Drug-eluting Intraluminal Devices, Percutaneous Approach (ICD-10-PCS; principal; 2021-12-15 21:22)
PROC: B2111ZZ Fluoroscopy of Multiple Coronary Arteries using Low Osmolar Contrast (ICD-10-PCS; 2021-12-15 21:22)
DX: I21.19 ST elevation (STEMI) myocardial infarction involving other coronary artery of inferior wall (principal); I42.9 Cardiomyopathy, unspecified; R74.01 Elevation of levels of liver transaminase levels; D64.9 Anemia, unspecified; I08.1 Rheumatic disorders of both mitral and tricuspid valves; R00.0 Tachycardia, unspecified; K27.9 Peptic ulcer, site unspecified, unspecified as acute or chronic, without hemorrhage or perforation; B96.81 Helicobacter pylori [H. pylori] as the cause of diseases classified elsewhere; I37.1 Nonrheumatic pulmonary valve insufficiency; E78.5 Hyperlipidemia, unspecified; I10 Essential (primary) hypertension; Z79.82 Long term (current) use of aspirin; Z87.19 Personal history of other diseases of the digestive system; Z82.49 Family history of ischemic heart disease and other diseases of the circulatory system; Z87.11 Personal history of peptic ulcer disease; Z87.891 Personal history of nicotine dependence; Z88.5 Allergy status to narcotic agent
CPT/HCPCS: 80053; 80069; 82728; 83540; 83550; 83735; 84100; 84443; 84481; 84484; 85025; 85027; 85610; 85730; 93306; 93458

== ENCOUNTER 2023-04-20 10:54 | Day surgery (SDC) | payer MEDICARE ==
[2023-04-18 16:43] VITALS: BMI 26.6
[~2023-04-20 10:54] MED LIST: LACTATED RINGERS 1,000 ML IV SCH; LIDOCAINE 1% (10MG/ML) FOR IV START INTRADERMA PRN
[2023-04-20 11:45] VITALS: TEMP 97.4
[2023-04-20] MEDS ORDERED: PROPOFOL 10 MG/ML 20 ML VIAL IV ONE (13:05)
--- NOTE | 2023-04-20 13:18 | P.PCN ---
Date of Procedure: 04/20/23 Procedure(s) Performed: BRIEF HISTORY: Patient is a 67-year-old pleasant white male scheduled for an elective colonoscopy as a part of evaluation of prior history of colon polyps. His last colonoscopy was 6 years ago. PROCEDURE PERFORMED: Colonoscopy. PREOPERATIVE DIAGNOSIS: History of colon polyps. IV sedation per Anesthesia. PROCEDURE: After informed consent was obtained, the patient, was brought into the endoscopy unit. IV sedation was administered by Anesthesia under continuous monitoring. Digital rectal examination was normal. Initially the Olympus CF-160 flexible video colonoscope was then inserted in the rectum, gradually advanced into the cecum without any difficulty. Careful examination was performed as the scope was gradually being withdrawn. Ileocecal valve and the appendiceal orifice were visualized and appeared normal. Prep was excellent. Mucosa of the cecum, ascending colon, transverse colon, descending colon, sigmoid colon, and rectum appeared normal. Scattered similar diverticulosis. Retroflexion was performed in the rectum and no lesions were seen. The patient tolerated the procedure well. IMPRESSION: Normal-appearing colon from rectum to cecum no ulcer or colorectal neoplasia Scattered sigmoid diverticulosis. RECOMMENDATIONS: Findings of this examination were discussed with the patient as well as his family. He was advised to have a repeat screening colonoscopy in 10 years..
[2023-04-20 13:32] VITALS: RESP 18
[2023-04-20 13:58] VITALS: BP 140/79; PULSE 57
== END 2023-04-20 13:56 | disposition home or self-care (01) ==
LOC: ORWHC2ENDO 10:54
PROVIDERS: ATTEND Internal Medicine Gastroenterology
DX: Z12.11 Encounter for screening for malignant neoplasm of colon (principal); D12.7 Benign neoplasm of rectosigmoid junction; K57.30 Diverticulosis of large intestine without perforation or abscess without bleeding; I25.2 Old myocardial infarction; I10 Essential (primary) hypertension; E78.5 Hyperlipidemia, unspecified; F12.90 Cannabis use, unspecified, uncomplicated; Z87.891 Personal history of nicotine dependence; Z79.899 Other long term (current) drug therapy; Z88.5 Allergy status to narcotic agent; Z86.010 Personal history of colon polyps
CPT/HCPCS: J2704; G0105; 45378